=== PATIENT | male | born 1960 | race Caucasian/White ===

== ENCOUNTER 2016-11-25 11:12 | Emergency (ER) | payer BC ==
--- NOTE | 2016-11-25 13:17 | ED ORDER SUMMARY ---
..... Patient: VIRGINIA OLIVARES OrderSheet [facility] VisitID: [id number] [address] [place] [address] 56y, M Registration Date/Time: 11/25/2016 ORDER SHEET Weight: 104.3 kg (stated) Allergies: No Known Drug Allergy GENERAL ORDERS: Tano Wrap (13:12 11/25/2016 Ventura ASHRAF) (13:36 LWhalen R.N.) MEDICATION ORDERS: Dilaudid IM 2 mg (HIGH ALERT MEDICATION, NOW) (13:11 11/25/2016 Ventura ASHRAF) (13:32 LWhalen R.N.) Toradol IM 60 mg (NOW) (13:12 11/25/2016 Ventura ASHRAF) (13:33 LWhalen R.N.) IV FLUIDS: ORDER SHEET NOTES: [Electronically signed by Ema Foster R.N. (16:49 11/25/2016)] [Electronically signed by Eamon Marquez R.N. (18:32 11/25/2016)] [Electronically signed by Mariana Maria MD (12:36 11/27/2016)] [Electronically locked/signed by Ema Foster R.N. (16:49 11/25/2016)]
--- NOTE | 2016-11-25 13:17 | ED CLINICAL REPORT ---
Clinical Report - Physicians/Mid Levels [facility] [address] [place] [address] 11/25/2016 11:15 Patient: VIRGINIA OLIVARES Time Seen: 11:45. Arrived- By private vehicle. Historian- patient. HISTORY OF PRESENT ILLNESS Chief Complaint: LOWER EXTREMITY PAIN. This started yesterday and is still present. Severity is described as being moderate. The quality is noted to be "pain". Not worsened by anything and relieved by anything. Symptoms located in the area of the right knee. The patient has had mild redness (Pt states surgeon said this was normal. No fever, chills, or feeling of illness. No drainage from wound.). He has had swelling. He has had difficulty walking (Pt has been using a walker since surgery, and has been getting up and around.). No bladder dysfunction, bowel dysfunction, sensory loss or motor loss. ( Friend states that knee looks better today than yesterday.). Patient notes a recent injury (Pt had a knee replacement 4 days ago. He states he declined pain meds, and his lidocaine infusion ran out yesterday.). Similar symptoms previously: None. Recent medical care: The patient was seen recently at another facility. REVIEW OF SYSTEMS No cough, chest pain, difficulty breathing, fever or skin rash. No enlarged lymph nodes, neck pain, back pain, headache or blurred vision. No sore throat, abdominal pain, vomiting, diarrhea or black stools. No difficulty with urination or bloody stools. All systems otherwise negative, except as recorded above. PAST HISTORY Problems: Degenerative Joint Disease. Additional Surgeries: Hamstring reattached . Quad reattachment . Right knee . Medications: Flomax Oral. Allergies: No Known Drug Allergy. SOCIAL HISTORY Never smoker. Alcohol use. No drug use. ADDITIONAL NOTES The nursing notes have been reviewed. PHYSICAL EXAM Vital Signs: 11/25/2016 11:26 BP: 106/67. HR: 65. RR: 18. O2 saturation: 99%. Temp: 98.2 F. Have been reviewed. Appearance: Alert. Oriented X3. No acute distress. Eyes: Pupils equal, round and reactive to light. Eyes normal inspection. ENT: Nose normal. Neck: Normal inspection. CVS: Pulses normal. Strong peripheral pulses. Respiratory: No respiratory distress. Back: ROM normal. Extremities: Extremities otherwise negative. Gait: Limping gait. (Pt is ambulatory with a walker.). LABS, X-RAYS, AND EKG Pulse Oximetry: 11/25/2016 11:26 O2 saturation: 99%. (FIO2 - room air). Interpretation: normal. PROGRESS AND PROCEDURES Course of Care: I did discuss the possibility of DVT with the pt, though given that the swelling is a little better today, and the pt has been up walking, DVT is less likely as an acute cause of pain. Pt has not felt ill or been febrile, which also makes wound infection less likely. I have given him the option to start a trial of abx and get an US to eval for DVT, but pt would prefer to wait on both of these things. I give him some oral analgesia, as his lidocaine pump has just been discontinued, and this is most likely contributing to his pain. We have discussed indications for return, and that pt should call his surgeon's office on Saturday, 11/27 (Saturday is a holiday, and today is Saturday) to touch base. Patient and friend counseled in person regarding the patient's stable condition, diagnosis and need for follow-up. Concerns were addressed. Old medical records reviewed. Disposition: Discharged. Condition: stable and improved. CLINICAL IMPRESSION Post-operative complication from musculoskeletal surgery (pain). INSTRUCTIONS Apply ice for 20 minutes three times a day as needed and until better. Don't apply ice directly to skin and don't use while asleep. Warnings: SEDATIVE MEDICATION: You were given sedative medication during your visit. Do not drive or operate dangerous machinery. GENERAL WARNINGS: Return or contact your physician immediately if your condition worsens or changes unexpectedly, if not improving as expected, or if other problems arise. Your Current Medications: CONTINUE TAKING THE FOLLOWING MEDICATIONS: Flomax Oral. Prescription Medications: Zofran (orally disintegrating tablets) 4 mg: take 1-2 orally every 6 hours as needed for nausea. Dispense fifteen (15). No refill. Substitution is permissible. Oxycodone/APAP 5 mg/325 mg: take 1-2 tablets orally every 4 hours as needed for pain. Dispense thirty (30). No refill. Follow-up: Follow up with a specialist as scheduled. Understanding of the discharge instructions verbalized by patient. (Electronically signed by Mariana Maria MD 11/27/2016 12:36)
--- NOTE | 2016-11-25 13:17 | ED NURSING NOTES ---
Clinical Report - Nurses [place] [address] [place] [address] 11/25/2016 11:15 Patient: VIRGINIA OLIVARES TRIAGE Triage time 11:Nov 25 2016. Acuity: LEVEL 3. Chief Complaint: INJURY TO RIGHT KNEE. VERONICA COMA SCORE: Veronica Coma Scale: 15- eyes open spontaneously (4); best verbal response- oriented x 4 (5); best motor response- obeys commands (6). --11:36 Eamon Marquez R.N. 11:26 11/25/16. BP: 106/67. HR: 65. RR: 18. O2 saturation: 99%. Temp: 98.2 F. Pain level now 5/10. --11:36 Eamon Marquez R.N. Weight: 104.3 kg stated. Height/Length: 73 inches Per Patient. BMI: 30.3. --11:35 Eamon Marquez R.N. Medications Flomax Oral. --11:31 Eamon Marquez R.N. Allergies No Known Drug Allergy. --11:31 Eamon Marquez R.N. History Arrived by private vehicle. Historian: patient. Accompanied by friend. ( Knee surgery complete knee replacement on the lidocane pump was working well then last night ran empty and patient began to have pain. Patient pulled out the pump as directed and had redness and pains going into groin. Leg swelled up and has been having severe pain since then.). PAST MEDICAL HX: Tetanus status: up-to-date. SOCIAL HX: Never smoker. Regular alcohol use; consumes two beers a week. No drug use. SELF HARM ASSESSMENT: A self harm assessment was performed. The patient answered "no" to the question "Have you recently felt down, depressed, or hopeless?" and "Do you have thoughts of harming or killing yourself?". FALL RISK ASSESSMENT: Fall risk assessment completed. No fall risk identified. NUTRITIONAL RISK ASSESSMENT: The nutritional risk assessment revealed no deficiencies. FUNCTIONAL ASSESSMENT: Functional assessment: no impairments noted. LEARNING NEEDS ASSESSMENT: The learning needs assessment revealed no barriers. ABUSE ASSESSMENT: Abuse assessment: (yes) The patient was asked "Do you feel safe in your home?". SKIN INTEGRITY ASSESSMENT: Skin integrity risk assessment completed. No skin integrity risk identified. --11:36 Eamon Marquez R.N. PROBLEMS: Degenerative Joint Disease. --11:33 Eamon Marquez R.N. ADDITIONAL SURGERIES: Hamstring reattached . Quad reattachment . Right knee . --11:33 Eamon Marquez R.N. Interventions ID and allergy band on patient. --11:36 Eamon Marquez R.N. PHYSICAL ASSESSMENT To room via wheelchair. GENERAL / NEURO / PSYCH: Oriented X 4. Alert. Appears in no acute distress. EXTREMITIES: Capillary refill is less than 2 seconds in the extremities. Extremity pulses are within normal limits. He was unable to bear weight. Neuro-vascular status intact to the extremity. Right knee. SKIN: Skin intact. Skin is warm and dry. --11:38 Eamon Marquez R.N. NURSING PROGRESS NOTES The plan of care for this patient has been created. Reassurance given. Call light placed in reach. Side rails up x 1. Bed placed in lowest position. Brakes of bed on. --11:39 Eamon Marquez R.N. 13:32 11/25/2016 Dilaudid (HYDROmorphone HCl PF) IM 2 mg given. Given in the right gluteus rebeca. Allergies verified, confirmed 5 rights and sedative warning given to the patient and patient's moving van driver. --13:32 Eamon Marquez R.N. 13:33 11/25/2016 Toradol (Ketorolac Tromethamine) IM 60 mg given. Given in the right gluteus rebeca and left gluteus rebeca (split dose). Allergies verified and confirmed 5 rights. --13:33 Eamon Marquez R.N. 13:38 11/25/16. BP: 128/83. HR: 68. RR: 18. O2 saturation: 100%. Temp: 98.4 F. Pain level now 6/10. --13:39 Eamon Marquez R.N. <<STRICKEN ENTRY-- 6 inch kun bandage applied to right knee by tech; distal pulses intact, sensation intact and motor function within normal limits. --16:47 Emily Moreno --END STRIKE>> Correction --16:48 Emily Moreno 13:30. 6 inch kun bandage applied to right knee by tech; distal pulses intact, sensation intact and motor function within normal limits. --16:54 Emily Moreno. DISPOSITION / DISCHARGE Departure time: 1350. Condition at departure: improved. No learning barriers present. Discharge instructions provided and reviewed with the patient. Reviewed medication(s) information. Prescription(s) given to the patient. Reviewed referral to an orthopedic surgeon for followup. Patient and moving van driver verbalized understanding. Written instructions provided. The patient was discharged home and accompanied by moving van driver. He left the Emergency Department ambulatory on crutches and via private vehicle. --16:45 Ema Foster R.N. 13:50 11/25/16. BP: 129/82. HR: 68. RR: 18. O2 saturation: 99%. Pain level now: 02/13. --16:45 Ema Foster R.N. Locked/Released at 11/25/2016 18:32 by Eamon Marquez R.N.
--- NOTE | 2016-11-25 13:17 | ED ORDER SUMMARY ---
..... Patient: VIRGINIA OLIVARES OrderSheet [facility] VisitID: [id number] [address] [place] [address] 56y, M Registration Date/Time: 11/25/2016 ORDER SHEET Weight: 104.3 kg (stated) Allergies: No Known Drug Allergy GENERAL ORDERS: Tano Wrap (13:12 11/25/2016 Ventura ASHRAF) (13:36 LWhalen R.N.) MEDICATION ORDERS: Dilaudid IM 2 mg (HIGH ALERT MEDICATION, NOW) (13:11 11/25/2016 Ventura ASHRAF) (13:32 LWhalen R.N.) Toradol IM 60 mg (NOW) (13:12 11/25/2016 Ventura ASHRAF) (13:33 LWhalen R.N.) IV FLUIDS: ORDER SHEET NOTES: [Electronically signed by Ema Foster R.N. (16:49 11/25/2016)] [Electronically signed by Eamon Marquze R.N. (18:32 11/25/2016)] [Electronically signed by Mariana Maria MD (12:36 11/27/2016)] [Electronically locked/signed by Ema Foster R.N. (16:49 11/25/2016)]
--- NOTE | 2016-11-25 13:17 | ED NURSING NOTES ---
Clinical Report - Nurses [place] [address] [place] [address] 11/25/2016 11:15 Patient: VIRGINIA OLIVARES TRIAGE Triage time 11:Nov 25 2016. Acuity: LEVEL 3. Chief Complaint: INJURY TO RIGHT KNEE. VERONICA COMA SCORE: Veronica Coma Scale: 15- eyes open spontaneously (4); best verbal response- oriented x 4 (5); best motor response- obeys commands (6). --11:36 Eamon Marquez R.N. 11:26 11/25/16. BP: 106/67. HR: 65. RR: 18. O2 saturation: 99%. Temp: 98.2 F. Pain level now 5/10. --11:36 Eamon Marquez R.N. Weight: 104.3 kg stated. Height/Length: 73 inches Per Patient. BMI: 30.3. --11:35 Eamon Marquez R.N. Medications Flomax Oral. --11:31 Eamon Marquez R.N. Allergies No Known Drug Allergy. --11:31 Eamon Marquez R.N. History Arrived by private vehicle. Historian: patient. Accompanied by friend. ( Knee surgery complete knee replacement on the lidocane pump was working well then last night ran empty and patient began to have pain. Patient pulled out the pump as directed and had redness and pains going into groin. Leg swelled up and has been having severe pain since then.). PAST MEDICAL HX: Tetanus status: up-to-date. SOCIAL HX: Never smoker. Regular alcohol use; consumes two beers a week. No drug use. SELF HARM ASSESSMENT: A self harm assessment was performed. The patient answered "no" to the question "Have you recently felt down, depressed, or hopeless?" and "Do you have thoughts of harming or killing yourself?". FALL RISK ASSESSMENT: Fall risk assessment completed. No fall risk identified. NUTRITIONAL RISK ASSESSMENT: The nutritional risk assessment revealed no deficiencies. FUNCTIONAL ASSESSMENT: Functional assessment: no impairments noted. LEARNING NEEDS ASSESSMENT: The learning needs assessment revealed no barriers. ABUSE ASSESSMENT: Abuse assessment: (yes) The patient was asked "Do you feel safe in your home?". SKIN INTEGRITY ASSESSMENT: Skin integrity risk assessment completed. No skin integrity risk identified. --11:36 Eamon Marquez R.N. PROBLEMS: Degenerative Joint Disease. --11:33 Eamon Marquez R.N. ADDITIONAL SURGERIES: Hamstring reattached . Quad reattachment . Right knee . --11:33 Eamon Marquez R.N. Interventions ID and allergy band on patient. --11:36 Eamon Marquez R.N. PHYSICAL ASSESSMENT To room via wheelchair. GENERAL / NEURO / PSYCH: Oriented X 4. Alert. Appears in no acute distress. EXTREMITIES: Capillary refill is less than 2 seconds in the extremities. Extremity pulses are within normal limits. He was unable to bear weight. Neuro-vascular status intact to the extremity. Right knee. SKIN: Skin intact. Skin is warm and dry. --11:38 Eamon Marquez R.N. NURSING PROGRESS NOTES The plan of care for this patient has been created. Reassurance given. Call light placed in reach. Side rails up x 1. Bed placed in lowest position. Brakes of bed on. --11:39 Eamon Marquez R.N. 13:32 11/25/2016 Dilaudid (HYDROmorphone HCl PF) IM 2 mg given. Given in the right gluteus rebeca. Allergies verified, confirmed 5 rights and sedative warning given to the patient and patient's curator of education. --13:32 Eamon Marquez R.N. 13:33 11/25/2016 Toradol (Ketorolac Tromethamine) IM 60 mg given. Given in the right gluteus rebeca and left gluteus rebeca (split dose). Allergies verified and confirmed 5 rights. --13:33 Eamon Marquez R.N. 13:38 11/25/16. BP: 128/83. HR: 68. RR: 18. O2 saturation: 100%. Temp: 98.4 F. Pain level now 6/10. --13:39 Eamon Marquez R.N. <<STRICKEN ENTRY-- 6 inch kun bandage applied to right knee by tech; distal pulses intact, sensation intact and motor function within normal limits. --16:47 Emily Moreno --END STRIKE>> Correction --16:48 Emily Moreno 13:30. 6 inch kun bandage applied to right knee by tech; distal pulses intact, sensation intact and motor function within normal limits. --16:54 Emily Moreno. DISPOSITION / DISCHARGE Departure time: 1350. Condition at departure: improved. No learning barriers present. Discharge instructions provided and reviewed with the patient. Reviewed medication(s) information. Prescription(s) given to the patient. Reviewed referral to an orthopedic surgeon for followup. Patient and curator of education verbalized understanding. Written instructions provided. The patient was discharged home and accompanied by curator of education. He left the Emergency Department ambulatory on crutches and via private vehicle. --16:45 Ema Foster R.N. 13:50 11/25/16. BP: 129/82. HR: 68. RR: 18. O2 saturation: 99%. Pain level now: 02/13. --16:45 Ema Foster R.N. Locked/Released at 11/25/2016 18:32 by Eamon Marquez R.N.
--- NOTE | 2016-11-27 12:36 | ED MAR SUMMARY ---
..... Medication Administration Record [facility] [address] [place] [address] Patient: VIRGINIA OLIVARES Visit ID: [id number] 56y, M Weight: 104.3 kg Height/Length: 73 in BMI: 30.3 ALLERGIES: No Known Drug Allergy Given 13:32 11/25/2016 Eamon Marquez, RJimmieNJimmie Medication Administered: DILAUDID [IM] (HYDROMORPHONE HCL PF), Dose: 2 mg IM. Medication Ordered: Dilaudid IM 2 mg (HIGH ALERT MEDICATION, NOW). Given 13:33 11/25/2016 Eamon Marquez, RJimmieN. Medication Administered: TORADOL [IM] (KETOROLAC TROMETHAMINE), Dose: 60 mg IM. Medication Ordered: Toradol IM 60 mg (NOW).
--- NOTE | 2016-11-27 12:36 | ED MED RECONCILIATION SUMMARY ---
Patient: VIRGINIA OLIVARES Medication Reconciliation Report [facility] VisitID: [id number] [address] [place] [address] 56y, M Registration Date/Time: 11/25/2016 Weight: 104.3 kg Height/Length: 73 in. BMI: 30.3 ALLERGIES: No Known Drug Allergy The patient's Home Medications are listed below: CONTINUE TAKING THE FOLLOWING MEDICATIONS: Flomax Oral The source(s) of the original Home Medication information: Not obtained. The following Medications were given to the patient in the Emergency Department: Dilaudid [IM] IM 2 mg, administered: 11/25/2016 1:32:00 PM Toradol [IM] IM 60 mg, administered: 11/25/2016 1:33:00 PM The following Medications were prescribed to the patient: Zofran (orally disintegrating tablets) 4 mg: take 1-2 orally every 6 hours as needed for nausea. Dispense fifteen (15). No refill. Substitution is permissible. -- Mariana Maria MD Oxycodone/APAP 5 mg/325 mg: take 1-2 tablets orally every 4 hours as needed for pain. Dispense thirty (30). No refill. -- Mariana Maria MD
--- NOTE | 2016-11-27 12:36 | ED MAR SUMMARY ---
..... Medication Administration Record [facility] [address] [place] [address] Patient: VIRGINIA OLIVARES Visit ID: [id number] 56y, M Weight: 104.3 kg Height/Length: 73 in BMI: 30.3 ALLERGIES: No Known Drug Allergy Given 13:32 11/25/2016 Eamon Marquez, RJimmieNJimmie Medication Administered: DILAUDID [IM] (HYDROMORPHONE HCL PF), Dose: 2 mg IM. Medication Ordered: Dilaudid IM 2 mg (HIGH ALERT MEDICATION, NOW). Given 13:33 11/25/2016 Eamon Marquez, RJimmieN. Medication Administered: TORADOL [IM] (KETOROLAC TROMETHAMINE), Dose: 60 mg IM. Medication Ordered: Toradol IM 60 mg (NOW).
--- NOTE | 2016-11-27 12:36 | ED MED RECONCILIATION SUMMARY ---
Patient: VIRGINIA OLIVARES Medication Reconciliation Report [facility] VisitID: [id number] [address] [place] [address] 56y, M Registration Date/Time: 11/25/2016 Weight: 104.3 kg Height/Length: 73 in. BMI: 30.3 ALLERGIES: No Known Drug Allergy The patient's Home Medications are listed below: CONTINUE TAKING THE FOLLOWING MEDICATIONS: Flomax Oral The source(s) of the original Home Medication information: Not obtained. The following Medications were given to the patient in the Emergency Department: Dilaudid [IM] IM 2 mg, administered: 11/25/2016 1:32:00 PM Toradol [IM] IM 60 mg, administered: 11/25/2016 1:33:00 PM The following Medications were prescribed to the patient: Zofran (orally disintegrating tablets) 4 mg: take 1-2 orally every 6 hours as needed for nausea. Dispense fifteen (15). No refill. Substitution is permissible. -- Mariana Maria MD Oxycodone/APAP 5 mg/325 mg: take 1-2 tablets orally every 4 hours as needed for pain. Dispense thirty (30). No refill. -- Mariana Maria MD
--- NOTE | 2016-11-27 12:36 | ED DISCHARGE INSTRUCTIONS ---
Patient: VIRGINIA OLIVARES General Instructions [facility] VisitID: [id number] [address] [place] [address] 56y, M Registration Date/Time: 11/25/2016 Post-operative complication from musculoskeletal surgery (pain). INSTRUCTIONS Apply ice for 20 minutes three times a day as needed and until better. Don't apply ice directly to skin and don't use while asleep. Warnings: SEDATIVE MEDICATION: You were given sedative medication during your visit. Do not drive or operate dangerous machinery. GENERAL WARNINGS: Return or contact your physician immediately if your condition worsens or changes unexpectedly, if not improving as expected, or if other problems arise. Your Current Medications: CONTINUE TAKING THE FOLLOWING MEDICATIONS: Flomax Oral. Prescription Medications: Zofran (orally disintegrating tablets) 4 mg: take 1-2 orally every 6 hours as needed for nausea. Dispense fifteen (15). No refill. Substitution is permissible. Oxycodone/APAP 5 mg/325 mg: take 1-2 tablets orally every 4 hours as needed for pain. Dispense thirty (30). No refill. Follow-up: Follow up with a specialist as scheduled. Understanding of the discharge instructions verbalized by patient. (Electronically signed by Mariana Maria MD 11/27/2016 12:36)
--- NOTE | 2016-11-27 12:36 | ED DISCHARGE INSTRUCTIONS ---
Patient: VIRGINIA OLIVARES General Instructions [facility] VisitID: [id number] [address] [place] [address] 56y, M Registration Date/Time: 11/25/2016 Post-operative complication from musculoskeletal surgery (pain). INSTRUCTIONS Apply ice for 20 minutes three times a day as needed and until better. Don't apply ice directly to skin and don't use while asleep. Warnings: SEDATIVE MEDICATION: You were given sedative medication during your visit. Do not drive or operate dangerous machinery. GENERAL WARNINGS: Return or contact your physician immediately if your condition worsens or changes unexpectedly, if not improving as expected, or if other problems arise. Your Current Medications: CONTINUE TAKING THE FOLLOWING MEDICATIONS: Flomax Oral. Prescription Medications: Zofran (orally disintegrating tablets) 4 mg: take 1-2 orally every 6 hours as needed for nausea. Dispense fifteen (15). No refill. Substitution is permissible. Oxycodone/APAP 5 mg/325 mg: take 1-2 tablets orally every 4 hours as needed for pain. Dispense thirty (30). No refill. Follow-up: Follow up with a specialist as scheduled. Understanding of the discharge instructions verbalized by patient. (Electronically signed by Mariana Maria MD 11/27/2016 12:36)
== END 2016-11-25 13:50 | disposition home or self-care (01) ==
LOC: ED SRH 11:12
DX: G89.18 Other acute postprocedural pain (principal); M25.561 Pain in right knee